=== PATIENT | male | born 1985 | race Caucasian/White ===

== ENCOUNTER 2025-02-25 21:13 | Emergency (ER) | payer OTHER, SELFPAY ==
[2025-02-25 21:20] VITALS: BP 158/93; PULSE 82; TEMP 36.6; O2SAT 100; BMI 29.8
--- NOTE | 2025-02-25 21:28 | PC.NURSE ---
Pain to right groin area, patient has a cyst to area that he is scheduled to have removed this coming Thursday but the pain is worsening. Area to right groin is slightly red, no drainage.
--- NOTE | 2025-02-25 21:35 | ED_ITS ---
HPI HPI - General Adult General Chief complaint: Extremity Injury, Lower Stated complaint: groin pain Time Seen by Provider: 02/25/25 21:23 Source: patient Mode of arrival: walk-in History of Present Illness HPI narrative: cc - cyst in right groin is painful Pt had a cyst in the right groin and was started on antibiotics. He was evaluated at [place] [facility] and at [facility] earlier today. He is frustrated that he was only given a lidocaine patch for the pain. He said that he has an appointment with a surgeon in 2 days to get the area evaluated. he said that the pain goes down the right leg. he already had a R ight LE US today and it was negative for DVT. Related Data Previous Rx's ?Medication ?Instructions ?Recorded tramadol 100 mg tablet 100 mg PO Q12H PRN pain #8 t abs 02/25/25 Allergies Allergy/AdvReac Type Severity Reaction Status Date / Time No Known Drug Allergies Allergy Verified 02/25/25 21:20 PFSH PFSH Social History Little interest or pleasure in doing things: not at all Feeling down, depressed, or hopeless: not at all Exam Narrative Exam Narrative: Nurses notes and vital signs reviewed and patient is not hypoxic. afebrile General: Well-appearing and in no apparent distress. Skin: Warm, dry, no pallor noted. No rash. Head: Normocephalic, atraumatic. Cardiovascular: Normal peripheral perfusion. Respiratory: No accessory muscle use or respiratory distress. Musculoskeletal: Focal tenderness to the soft tissue of the proximal and medial right thigh about 3cm below the inguinal ligament. No palpable mass. No erythema or warmth. No skin change to suggest cellulitis. Right LE with normal ROM, no calf or popliteal tenderness, no lower extremity edema/swelling Neurological: A&O x4. No cranial nerve dysfunction observed. No truncal ataxia. Moves all extremities. Sensation intact. Psychiatric: Cooperative and interactive. Normal mood and affect. Constitutional Vital Signs, click to edit/add: Last Vital Signs Temp 97.8 F 02/25/25 21:20 Pulse 82 02/25/25 21:20 Resp 20 02/25/25 21:20 BP 158/93 H 02/25/25 21:20 Pulse Ox 100 02/25/25 21:20 O2 Del Method Room Air 02/25/25 21:20 Course Vital Signs Vital signs: Vital Signs Temperature 97.8 F 02/25/25 21:20 Pulse Rate 82 02/25/25 21:20 Respiratory Rate 20 02/25/25 21:20 Blood Pressure 158/93 H 02/25/25 21:20 Pulse Oximetry 100 02/25/25 21:20 Oxygen Delivery Method Room Air 02/25/25 21:20 Temperature 97.8 F 02/25/25 21:20 Pulse Rate 82 02/25/25 21:20 Respiratory Rate 20 02/25/25 21:20 Blood Pressure 158/93 H 02/25/25 21:20 Pulse Oximetry 100 02/25/25 21:20 Oxygen Delivery Method Room Air 02/25/25 21:20 Medical Decision Making MDM Narrative Medical decision making narrative: Pt already had DUS to rule out DVT. he is on two antibiotics. He said that the lidocaine patch applied to the area isn't doing anything . Pt given ultram 100mg in the ED and discharged home with prescription for 10 more ultram tablets. He will see the surgeon in a few days as scheduled. Discharge Plan Discharge Chief Complaint: Extremity Injury, Lower Clinical Impression: Epidermoid cyst of skin of inguinal region Patient Disposition: Home, Self-Care Time of Disposition Decision: 21:40 Prescriptions / Home Meds: New tramadol 100 mg tablet 100 mg PO Q12H PRN (Reason: pain) Qty: 8 0RF Print Language: Uzbek Instructions: Epidermal Inclusion Cysts (ED) Referrals: JESSICA MAHAJAN [Primary Care Provider, Family Practice] - 1 week
[2025-02-25] MEDS: TRAMADOL HCL 50 MG TABLET 100 MG PO (21:44)
== END 2025-02-25 21:54 | disposition home or self-care (01) ==
PROVIDERS: Emergency Provider Emergency Medicine; PCP Family Medicine
DX: L72.0 Epidermal cyst (principal)
CPT/HCPCS: 99283